=== PATIENT | female | born 1985 | race Two or more races ===

== ENCOUNTER 2024-11-13 11:37 | Observation (INO) | payer MEDICAID, SELFPAY ==
[2024-11-13 11:40] VITALS: BP 138/81; PULSE 73; RESP 17; RESP 98; TEMP 36.7; BMI 35.5
[2024-11-13 11:51] VITALS: BP 138/81; PULSE 73
[2024-11-13] MEDS: BETAMET ACET/BETAMET NA PH (Celestone) 6 MG/ML VIAL 12 MG IM (11:51)
== END 2024-11-13 12:30 | disposition home or self-care (01) ==
PROVIDERS: Admitting Provider Obstetrics & Gynecology; Visit Provider Obstetrics & Gynecology
DX: Z34.83 Encounter for supervision of other normal pregnancy, third trimester (principal); Z3A.31 31 weeks gestation of pregnancy
CPT/HCPCS: 59025; 59899; 96372; J0702

== ENCOUNTER 2024-11-14 15:25 | Outpatient (CLI) | payer MEDICAID, SELFPAY ==
[2024-11-14] VITALS (8 sets, daily range): BP systolic 132–172; BP diastolic 65–91; PULSE 79–100; RESP 18–99; TEMP 36.7; BMI 38.2
[2024-11-14] MEDS: BETAMET ACET/BETAMET NA PH (Celestone) 6 MG/ML VIAL 12 MG IM (15:51)
[2024-11-14 17:06] LABS: Collection Type, Urine Clean Catch; RBC,Urine 0 /hpf (0-3)
[2024-11-14 17:11] LABS: Basophils # (Auto) 0.0 Thou/mm3 (0.0-0.2); Basophils % (Auto) 0 % (0-2.5); Eosinophils # (Auto) 0.1 Thou/mm3 (0.0-0.5); Eosinophils % (Auto) 1 % (0-10); Hematocrit 36.7 % (36.0-46.0); Hemoglobin 11.5 g/dL (12.0-16.0); Immature Granulocytes Auto 0.40 Thou/mm3 (0.00-0.00); Lymphocytes # (Auto) 2.7 Thou/mm3 (1.0-4.8); Lymphocytes % (Auto) 20 % (10-50); Mean Corpuscular HGB Conc 31.3 g/dl (31.0-37.0); Mean Corpuscular Hemoglobin 24.2 pg (25.0-35.0); Mean Corpuscular Volume 77 fL (80-100); Monocytes # (Auto) 1.0 Thou/mm3 (0.0-0.8); Monocytes % (Auto) 8 % (0-12); Neutrophils # (Auto) 9.1 Thou/mm3 (1.8-7.7); Neutrophils % (Auto) 69 % (37-80); Nucleated Red Blood Cell # 0.00 Thou/mm3 (0.00-0.00); Nucleated Red Blood Cell % 0 /100 WBC (0); Platelet Count 233 Thou/mm3 (140-440); RDW Standard Deviation 39.5 fL (36.4-46.3); Red Blood Count 4.75 Miln/mm3 (4.00-5.20); White Blood Count 13.3 Thou/mm3 (3.6-11.0)
[2024-11-14 17:16] LABS: Bacteria,Urine 1+; Bilirubin,Urine Negative (Negative); Blood,Urine Negative (Negative); Clarity,Urine Turbid (Clear/Hazy); Color,Urine Lt-Yellow (Lt Yel-Yel); Glucose, Urine Negative (Negative); Ketones,Urine Negative (Negative); Leukocyte Esterase,Urine Positive (Negative); Nitrite,Urine Negative (Negative); PH,Urine 6.5 (5.0-7.0); Protein,Urine Negative (Neg - Trace); Specific Gravity,Urine 1.009 (1.001-1.035); Squamous Epithelial Cell,Urine 13 /hpf (0-5); Urobilinogen,Urine Negative mg/dL (0.0-1.0); WBC,Urine 5 /hpf (0-5)
[2024-11-14 17:32] LABS: Creatinine,Random Urine 42 mg/dL (30-125); Protein Total, Random Urine 28 mg/dL (1-14)
[2024-11-14 17:36] LABS: Fibrinogen 578 mg/dL (175-375); INR 0.9 (0.9-1.3); Partial Thromboplastin Time 20.9 Seconds (22.0-36.0); Prothrombin Time 9.9 Seconds (9.0-12.2)
[2024-11-14 17:43] LABS: Alanine Aminotransferase 10 U/L (10-49); Albumin, Serum 4.2 gm/dL (3.5-5.0); Albumin/Globulin Ratio 1.4 (1.2-2.2); Alkaline Phosphatase 75 U/L (46-116); Anion Gap 14 (7-16); Aspartate Amino Transferase 19 U/L (0-34); BUN/Creatinine Ratio 10 Ratio (12-20); Bilirubin,Total 0.2 mg/dL (0.3-1.2); Blood Urea Nitrogen 6 mg/dL (9-23); Calcium 9.5 mg/dL (8.3-10.6); Calcium (Corrected) 9.5 mg/dL (8.5-10.1); Carbon Dioxide 19.2 mMol/L (20.0-31.0); Chloride 103 mMol/L (98-107); Creatinine (Component) 0.6 mg/dL (0.6-1.3); Estimated Creatinine Clearance 147.1 mL/min (>60); Globulin 2.9 gm/dL (2.3-3.5); Glucose 97 mg/dL (74-106); Osmolality,Calculated 269 (275-295); Potassium 3.7 mMol/L (3.4-5.1); Sodium 136 mMol/L (136-145); Total Protein 7.1 gm/dL (5.7-8.2); Uric Acid 4.5 mg/dL (3.1-7.8); eGFR > 60 See Note
== END 2024-11-14 17:55 | disposition home or self-care (01) ==
LOC: S4S1 15:26 → S4SX 15:27
PROVIDERS: Referring Provider Obstetrics & Gynecology; Visit Provider Obstetrics & Gynecology
DX: Z34.80 Encounter for supervision of other normal pregnancy, unspecified trimester (principal); Z36.9 Encounter for antenatal screening, unspecified; Z3A.00 Weeks of gestation of pregnancy not specified
CPT/HCPCS: 36415; 59025; 80053; 81001; 82570; 84156; 84550; 85025; 85384; 85610; 85730; 96372; J0702

== ENCOUNTER 2024-11-27 09:39 | Outpatient (CLI) | payer MEDICAID, SELFPAY ==
[2024-11-27 09:40] VITALS: BP 136/88; PULSE 85; RESP 100; RESP 16; TEMP 36.6; BMI 35.6
[2024-11-27 09:45] VITALS: BP 136/88; PULSE 76; PULSE 85; O2SAT 98
[2024-11-27 09:50] VITALS: PULSE 89; O2SAT 99
[2024-11-27 09:55] VITALS: PULSE 81; O2SAT 99
[2024-11-27 10:00] VITALS: PULSE 72; O2SAT 100
== END 2024-11-27 10:14 | disposition home or self-care (01) ==
LOC: S4S1 09:40 → S4SX 09:40
PROVIDERS: Referring Provider Obstetrics & Gynecology; Visit Provider Obstetrics & Gynecology
DX: Z34.83 Encounter for supervision of other normal pregnancy, third trimester (principal); Z36.89 Encounter for other specified antenatal screening; Z3A.33 33 weeks gestation of pregnancy
CPT/HCPCS: 59025

== ENCOUNTER 2024-12-11 09:35 | Outpatient (CLI) | payer MEDICAID, SELFPAY ==
[2024-12-11] VITALS (17 sets, daily range): BP systolic 130–192; BP diastolic 59–104; PULSE 70–81; RESP 18–98; TEMP 36.4; BMI 36.6
--- NOTE | 2024-12-11 09:44 | XR_ITS ---
Examination: Biophysical profile, ultrasound Date and time of exam: December 11, 2024, 1155 hours INDICATIONS: Nonreactive NST on examination today Technique: Multiple transabdominal sonographic images of the pelvis abdomen obtained. Attention is directed to the breathing movement, gross body movement, amniotic fluid volume and tone. Findings: 15.8 amniotic fluid index Total biophysical profile is 8 of 8. breathing movement is 2. Gross body movement is 2. tone is 2. Qualitative amniotic fluid volume is 2 Impression: Biophysical profile is 8 of 8.
--- NOTE | 2024-12-11 10:20 | PD.LDANTE ---
Documentation for date of: 12/11/24 OB Labor/Induct. HPI History of Present Illness : 7 Term pregnancies: 3 pregnancies: 0 Living children: 3 History of Abortions: Spontaneous and Elective: 3 History of sections: No History of : No History of present illness: H and P dictated on STAT line #9 in [facility]. # [id number] Past Medical History Surgical History SURGICAL: Negative Section Meds Home Medications and Allergies Home Medications ?Medication ?Instructions ?Recorded ?Confirmed ?Type propylthiouracil 50 mg tablet 50 mg PO TID 11/18/23 12/11/24 History Held on 12/11/24. Instructions: Doctor's Order vits no.130-ferrous fum 1 tab PO QDAY 11/13/24 12/11/24 History 27 mg iron-folic acid 800 mcg tablet ( Vitamin) aspirin 81 mg tablet,delayed 81 mg PO QDAY 12/11/24 12/11/24 History release ferrous sulfate 325 mg (65 mg 325 mg PO QDAY 12/11/24 12/11/24 History iron) tablet methimazole 5 mg tablet 5 mg PO QDAY 12/11/24 12/11/24 History Allergies Allergy/AdvReac Type Severity Reaction Status Date / Time No Known Allergies Allergy Verified 11/27/24 10:57 OB Exam Physical Exam Vital signs: Pulse BP 76 166/97 H 12/11/24 10:06 12/11/24 10:06
[2024-12-11] MEDS: LABETALOL INJ 5 MG/ML VIAL 20 ML 20 MG IVP (10:31)
[2024-12-11] MEDS: RINGERS LACTATED 1000 ML 1,000 ML 30 ML IV (10:35)
[2024-12-11] MEDS: BETAMET ACET/BETAMET NA PH (Celestone) 6 MG/ML VIAL 12 MG IM (10:38)
--- NOTE | 2024-12-11 10:48 | ESHP_ITS ---
RE: ANITRA CHERY : 1985 DATE OF ADMISSION: 12/11/2024 HISTORY OF PRESENT ILLNESS: This is a 39-year-old 7, para 3-0-3-3 with due date of 01/12 with intrauterine of 38 weeks and 4 days who is due on 01/12, presents to maternal infant unit due to having a spontaneous deceleration during her office non-stress test. The patient presented to maternal unit and was noted to have a blood pressure of 192/104. Subsequent blood pressures were in the 160s/90s. She denies any headache, change in vision or right upper quadrant pain. She denies any chest pain, palpitations, shortness of breath, or lower extremity pain. She does have chronic hypertension, but she does not take any medication. She does have hyperthyroidism and she has been on methimazole throughout her with normal thyroid function tests. She was diagnosed with preeclampsia in November when she was noted to have a 24-hour urine protein of 339 mg, which was a significant change from her baseline 24- hour urine, which was 149 mg back in August. The patient is a gestational diabetic and she is diet controlled. She has been on aspirin throughout her . She did receive betamethasone in November. She underwent a maternal medicine ultrasound on 11/18/2024 showing overall growth at the 99th percentile with normal renal pelvis. She has had serial PIH labs. Her most recent blood work on 12/08/2024 showed all liver function tests, creatinine, platelets all within normal range. MEDICATIONS: 1. multivitamin 1 p.o. daily. 2. Aspirin 81 mg 1 p.o. daily. 3. Methimazole 5 mg 1 p.o. daily. 4. Ferrous sulfate 325 mg 1 p.o. daily. SOCIAL HISTORY: She denies any alcohol, drug use, or smoking. PAST MEDICAL HISTORY: Chronic hypertension with superimposed preeclampsia, hyperthyroidism, gestational diabetes mellitus class A2, endometriosis and advanced maternal age and iron deficiency anemia. FAMILY HISTORY: Hypertension, asthma, hypothyroidism. OBSTETRIC HISTORY: 2006, 37-week normal vaginal delivery, complicated by oligohydramnios; 2008, 37-week normal vaginal delivery, complicated by oligohydramnios; 2016, 39-week normal vaginal REVIEW OF SYSTEMS: She denies any chest pain, palpitations, cough, fever, shortness of breath, or lower extremity pain. She denies any headache, change in vision, right upper quadrant pain. She denies any swelling in her face or hands. PHYSICAL EXAMINATION: VITAL SIGNS: Blood pressure 162/78, heart rate 88, respirations 18, temperature 98.6, weight 234 pounds. HEENT: Oropharynx and sclerae are clear. LUNGS: Clear to auscultation bilaterally. HEART: Regular rate and rhythm. ABDOMEN: Gravid consistent with 35 weeks' gestation. EXTREMITIES: Nontender. SKIN: No gross rashes or lesions. NEUROLOGIC: No focal deficits. ASSESSMENT AND PLAN: Intrauterine at 35 weeks and 3 days, chronic hypertension with superimposed preeclampsia, hyperthyroidism, gestational diabetes mellitus class A1. PLAN: Biophysical profile, non-stress test, betamethasone for lung maturity, second series dosing, PIH labs, labetalol 20 mg IV. I discussed with the patient the nature of her condition, the recommended treatment plan. DT: 10:19:18 TT: 10:46:00 Ref: [id number] - TID: [id number] MTDD
[2024-12-11 10:58] LABS: Collection Type, Urine Clean Catch
[2024-12-11 11:03] LABS: Basophils # (Auto) 0.0 Thou/mm3 (0.0-0.2); Basophils % (Auto) 0 % (0-2.5); Eosinophils # (Auto) 0.1 Thou/mm3 (0.0-0.5); Eosinophils % (Auto) 1 % (0-10); Hematocrit 35.2 % (36.0-46.0); Hemoglobin 11.3 g/dL (12.0-16.0); Immature Granulocytes Auto 0.11 Thou/mm3 (0.00-0.00); Lymphocytes # (Auto) 2.1 Thou/mm3 (1.0-4.8); Lymphocytes % (Auto) 23 % (10-50); Mean Corpuscular HGB Conc 32.1 g/dl (31.0-37.0); Mean Corpuscular Hemoglobin 24.0 pg (25.0-35.0); Mean Corpuscular Volume 75 fL (80-100); Monocytes # (Auto) 0.5 Thou/mm3 (0.0-0.8); Monocytes % (Auto) 5 % (0-12); Neutrophils # (Auto) 6.6 Thou/mm3 (1.8-7.7); Neutrophils % (Auto) 70 % (37-80); Nucleated Red Blood Cell # 0.00 Thou/mm3 (0.00-0.00); Nucleated Red Blood Cell % 0 /100 WBC (0); Platelet Count 297 Thou/mm3 (140-440); RDW Standard Deviation 38.8 fL (36.4-46.3); Red Blood Count 4.71 Miln/mm3 (4.00-5.20); White Blood Count 9.4 Thou/mm3 (3.6-11.0)
[2024-12-11 11:06] LABS: Bilirubin,Urine Negative (Negative); Blood,Urine Negative (Negative); Clarity,Urine Clear (Clear/Hazy); Color,Urine Colorless (Lt Yel-Yel); Glucose, Urine Negative (Negative); Ketones,Urine Trace (Negative); Leukocyte Esterase,Urine Negative (Negative); Nitrite,Urine Negative (Negative); PH,Urine 6.5 (5.0-7.0); Protein,Urine Negative (Neg - Trace); RBC,Urine < 1 /hpf (0-3); Specific Gravity,Urine 1.002 (1.001-1.035); Squamous Epithelial Cell,Urine < 1 /hpf (0-5); Urobilinogen,Urine Negative mg/dL (0.0-1.0); WBC,Urine < 1 /hpf (0-5)
--- NOTE | 2024-12-11 11:38 | PC.NURSE ---
0915- us called spoke with Azul about need for stat bpp. per us tech, 4 er us are needed to be done before, made aware pt is here for non reactive nst in office. per tech will be up as soon as possible 1039- us called again, spoke with Leann inquiring about BPP ordered for pt, per tech still have US to be done before. Tech asked if pt could walk down but pt has IV and continuous monitoring, per Leann will be up as soon as possible.
[2024-12-11 12:03] LABS: INR 0.9 (0.9-1.3); Partial Thromboplastin Time 26.1 Seconds (22.0-36.0); Prothrombin Time 9.8 Seconds (9.0-12.2)
[2024-12-11 12:08] LABS: Alanine Aminotransferase 8 U/L (10-49); Albumin, Serum 3.9 gm/dL (3.5-5.0); Albumin/Globulin Ratio 1.3 (1.2-2.2); Alkaline Phosphatase 96 U/L (46-116); Anion Gap 13 (7-16); Aspartate Amino Transferase 16 U/L (0-34); BUN/Creatinine Ratio 13 Ratio (12-20); Bilirubin,Total 0.3 mg/dL (0.3-1.2); Blood Urea Nitrogen < 5 mg/dL (9-23); Calcium 9.3 mg/dL (8.3-10.6); Calcium (Corrected) 9.4 mg/dL (8.5-10.1); Carbon Dioxide 20.8 mMol/L (20.0-31.0); Chloride 106 mMol/L (98-107); Creatinine (Component) 0.4 mg/dL (0.6-1.3); Estimated Creatinine Clearance 239.1 mL/min (>60); Globulin 2.9 gm/dL (2.3-3.5); Glucose 81 mg/dL (74-106); LDH (Lactate Dehydrogenase) 187 U/L (120-246); Osmolality,Calculated 275 (275-295); Potassium 3.5 mMol/L (3.4-5.1); Sodium 140 mMol/L (136-145); Total Protein 6.8 gm/dL (5.7-8.2); eGFR > 60 See Note
[2024-12-11 12:18] LABS: Uric Acid 5.0 mg/dL (3.1-7.8)
[2024-12-11 12:28] LABS: Fibrinogen 708 mg/dL (175-375)
[2024-12-11 13:12] LABS: Creatinine,Random Urine < 13 mg/dL (30-125); Protein Total, Random Urine < 6 mg/dL (1-14)
== END 2024-12-11 12:40 | disposition home or self-care (01) ==
LOC: S4S1 09:36 → S4SX 09:36
PROVIDERS: Referring Provider Specialist; Visit Provider Specialist
DX: O11.3 Pre-existing hypertension with pre-eclampsia, third trimester (principal); O10.913 Unspecified pre-existing hypertension complicating pregnancy, third trimester; O99.283 Endocrine, nutritional and metabolic diseases complicating pregnancy, third trimester; E05.90 Thyrotoxicosis, unspecified without thyrotoxic crisis or storm; O24.410 Gestational diabetes mellitus in pregnancy, diet controlled; O09.523 Supervision of elderly multigravida, third trimester; Z3A.35 35 weeks gestation of pregnancy
CPT/HCPCS: 36415; 59025; 76819; 80053; 81001; 82570; 83615; 84156; 84550; 85025; 85384; 85610; 85730; 87340; 96372; J0702; J3490; J7120; J1920

== ENCOUNTER 2024-12-12 10:40 | Outpatient (CLI) | payer MEDICAID, SELFPAY ==
[2024-12-12] VITALS (12 sets, daily range): BP systolic 144–165; BP diastolic 74–85; PULSE 78–87; RESP 20–99; TEMP 37.2; O2SAT 98–99; BMI 36.8
[2024-12-12] MEDS: BETAMET ACET/BETAMET NA PH (Celestone) 6 MG/ML VIAL 12 MG IM (11:23)
== END 2024-12-12 11:45 | disposition home or self-care (01) ==
LOC: S4SX 10:59 → S4S1 10:59
PROVIDERS: Referring Provider Specialist; Visit Provider Specialist
DX: Z34.83 Encounter for supervision of other normal pregnancy, third trimester (principal); Z3A.35 35 weeks gestation of pregnancy
CPT/HCPCS: 59025; 96372; J0702

== ENCOUNTER 2024-12-18 09:59 | Inpatient (IN) | payer MEDICAID, SELFPAY ==
[2024-12-18] VITALS (28 sets, daily range): BP systolic 0–178; BP diastolic 0–96; PULSE 55–76; RESP 16–20; TEMP 36.6–36.9; O2SAT 95–99; BMI 37.0
[2024-12-18] MEDS: RINGERS LACTATED 1000 ML 1,000 ML 100 ML IV ×2 (10:35→23:25)
--- NOTE | 2024-12-18 10:47 | PD.LDHP ---
Documentation for date of: 12/18/24 Meds Home Medications and Allergies Home Medications ?Medication ?Instructions ?Recorded ?Confirmed ?Type vits no.130-ferrous fum 1 tab PO QDAY 11/13/24 12/12/24 History 27 mg iron-folic acid 800 mcg tablet ( Vitamin) aspirin 81 mg tablet,delayed 81 mg PO QDAY 12/11/24 12/12/24 History release ferrous sulfate 325 mg (65 mg 325 mg PO QDAY 12/11/24 12/12/24 History iron) tablet methimazole 5 mg tablet 5 mg PO QDAY 12/11/24 12/12/24 History labetalol 200 mg tablet 200 mg PO BID 12/12/24 12/12/24 History Allergies Allergy/AdvReac Type Severity Reaction Status Date / Time No Known Allergies Allergy Verified 12/12/24 10:56 OB Exam Physical Exam Vital signs: Pulse BP 71 157/74 H 12/18/24 10:19 12/18/24 10:19 OB Results Labs 12/18/24 10:30 12/18/24 10:30 Impressions Impression: [address] [id number] History and Physical Report Author: Herbie Palacios DO RE: ANITRA CHERY : 1985 DATE OF ADMISSION: 12/18/2024 HISTORY OF PRESENT ILLNESS: This is a 39-year-old 7, para 3-0-3-3 with due date of 01/12 with intrauterine of 36 weeks and 3 days who is due on 01/12, presents to maternal infant unit after being seen by MFM today in the office where her BP was found to be > 165/85 despite Labetalol 200mg po prior to her visit. The MFM US today showed EFW 4230g. She is GDM A1. She received a second dose series of Betamethasone last week. She denies any headache, change in vision or swelling in face or hands or right upper quadrant pain. She denies any chest pain, palpitations, shortness of breath, or lower extremity pain. She does have chronic hypertension and is taking Labetalol 200mg po BID. She does have hyperthyroidism and she has been on methimazole throughout her with normal thyroid function tests. She was diagnosed with preeclampsia in November when she was noted to have a 24-hour urine protein of 339 mg, which was a significant change from her baseline 24-hour urine, which was 149 mg back in August. The patient is a gestational diabetic and she is diet controlled. She has been on aspirin throughout her . She also received betamethasone in November. She underwent a maternal medicine ultrasound on 11/18/2024 showing overall growth at the 99th percentile with normal renal pelvis. MEDICATIONS: 1. multivitamin 1 p.o. daily. 2. Aspirin 81 mg 1 p.o. daily. 3. Methimazole 5 mg 1 p.o. daily. 4. Ferrous sulfate 325 mg 1 p.o. daily. 5. Labetalol 200mg po BID. SOCIAL HISTORY: She denies any alcohol, drug use, or smoking. PAST MEDICAL HISTORY: Chronic hypertension with superimposed preeclampsia, hyperthyroidism, gestational diabetes mellitus class A2, endometriosis and advanced maternal age and iron deficiency anemia. FAMILY HISTORY: Hypertension, asthma, hypothyroidism. OBSTETRIC HISTORY: 2006, 37-week normal vaginal delivery, complicated by oligohydramnios; 2008, 37-week normal vaginal delivery, complicated by oligohydramnios; 2016, 39-week normal vaginal REVIEW OF SYSTEMS: She denies any chest pain, palpitations, cough, fever, shortness of breath, or lower extremity pain. She denies any headache, change in vision, right upper quadrant pain. She denies any swelling in her face or hands. PHYSICAL EXAMINATION: VITAL SIGNS: Blood pressure 162/78, heart rate 88, respirations 18, temperature 98.6, weight 234 pounds. HEENT: Oropharynx and sclerae are clear. LUNGS: Clear to auscultation bilaterally. HEART: Regular rate and rhythm. ABDOMEN: Gravid consistent with weight 9 lbs. EXTREMITIES: Nontender. SKIN: No gross rashes or lesions. NEUROLOGIC: No focal deficits. ASSESSMENT AND PLAN: Intrauterine at 36 weeks and 3 days, chronic hypertension with superimposed preeclampsia, hyperthyroidism, gestational diabetes mellitus class A1, Macrosomia with EFW 4230g at increased risk for Shoulder Dystocia. PLAN: Delivery. Informed consent obtained. Pt aware of the risks, complications, alternatives and benefits of the proposed procedure and she agrees.
[2024-12-18 11:02] LABS: Basophils # (Auto) 0.0 Thou/mm3 (0.0-0.2); Basophils % (Auto) 0 % (0-2.5); Eosinophils # (Auto) 0.1 Thou/mm3 (0.0-0.5); Eosinophils % (Auto) 1 % (0-10); Hematocrit 32.3 % (36.0-46.0); Hemoglobin 10.6 g/dL (12.0-16.0); Immature Granulocytes Auto 0.19 Thou/mm3 (0.00-0.00); Lymphocytes # (Auto) 1.9 Thou/mm3 (1.0-4.8); Lymphocytes % (Auto) 22 % (10-50); Mean Corpuscular HGB Conc 32.8 g/dl (31.0-37.0); Mean Corpuscular Hemoglobin 24.4 pg (25.0-35.0); Mean Corpuscular Volume 74 fL (80-100); Monocytes # (Auto) 0.6 Thou/mm3 (0.0-0.8); Monocytes % (Auto) 7 % (0-12); Neutrophils # (Auto) 5.8 Thou/mm3 (1.8-7.7); Neutrophils % (Auto) 67 % (37-80); Nucleated Red Blood Cell # 0.00 Thou/mm3 (0.00-0.00); Nucleated Red Blood Cell % 0 /100 WBC (0); Platelet Count 270 Thou/mm3 (140-440); RDW Standard Deviation 39.4 fL (36.4-46.3); Red Blood Count 4.34 Miln/mm3 (4.00-5.20); White Blood Count 8.6 Thou/mm3 (3.6-11.0)
[2024-12-18 11:27] LABS: Alanine Aminotransferase 10 U/L (10-49); Albumin, Serum 3.4 gm/dL (3.5-5.0); Albumin/Globulin Ratio 1.3 (1.2-2.2); Alkaline Phosphatase 87 U/L (46-116); Anion Gap 11 (7-16); Aspartate Amino Transferase 12 U/L (0-34); BUN/Creatinine Ratio 13 Ratio (12-20); Bilirubin,Total 0.3 mg/dL (0.3-1.2); Blood Urea Nitrogen < 5 mg/dL (9-23); Calcium 8.7 mg/dL (8.3-10.6); Calcium (Corrected) 9.2 mg/dL (8.5-10.1); Carbon Dioxide 22.1 mMol/L (20.0-31.0); Chloride 107 mMol/L (98-107); Creatinine (Component) 0.4 mg/dL (0.6-1.3); Globulin 2.6 gm/dL (2.3-3.5); Glucose 92 mg/dL (74-106); Osmolality,Calculated 276 (275-295); Potassium 3.4 mMol/L (3.4-5.1); Sodium 140 mMol/L (136-145); Total Protein 6.0 gm/dL (5.7-8.2); Uric Acid 5.4 mg/dL (3.1-7.8); eGFR > 60 See Note
[2024-12-18] MEDS: METHIMAZOLE 5 MG TABLET PO (11:32)
[2024-12-18 11:33] LABS: Syphilis Nonreactive (Nonreactive)
[2024-12-18 11:54] LABS: INR 0.9 (0.9-1.3); Partial Thromboplastin Time 25.1 Seconds (22.0-36.0); Prothrombin Time 10.1 Seconds (9.0-12.2)
[2024-12-18 11:55] LABS: Fibrinogen 609 mg/dL (175-375)
[2024-12-18 12:10] LABS: Collection Type, Urine Clean Catch
[2024-12-18] MEDS: ONDANSETRON INJ 2 MG/ML INJ 2 ML 4 MG IVP (12:12)
[2024-12-18] MEDS: ceFAZolin/D5W 2 GM IV 2 GM/100 ML BAG IV (12:12)
[2024-12-18] MEDS: FAMOTIDINE INJ 10 MG/ML VIAL 2 ML 20 MG IV (12:12)
--- NOTE | 2024-12-18 12:29 | PD.GYNPROC ---
Operative Note - [employer] Procedure Date of procedure: 12/18/24 Procedure Performed: Primary Low Transverse Section via Pfanensteil Skin Incision ` Indication: Intrauterine at 36 weeks and 3 days Chronic hypertension with superimposed preeclampsia Hyperthyroidism Gestational diabetes mellitus class A1 Advanced Maternal Age Macrosomia with EFW 4230g at increased risk for Shoulder Dystocia in the setting of diabetes. Pre-Op diagnosis: Intrauterine at 36 weeks and 3 days Chronic hypertension with superimposed preeclampsia Hyperthyroidism Gestational diabetes mellitus class A1 Advanced Maternal Age Macrosomia with EFW 4230g at increased risk for Shoulder Dystocia in the setting of diabetes Post-Op diagnosis: Intrauterine at 36 weeks and 3 days Chronic hypertension with superimposed preeclampsia Hyperthyroidism Gestational diabetes mellitus class A1 Advanced Maternal Age Macrosomia with EFW 4230g at increased risk for Shoulder Dystocia in the setting of diabetes Adenomyosis Endometriosis Anesthesia type: Spinal Procedure description: After proper informed consent was obtained and the patient was made aware of the risks, complications, alternatives and benefits of the proposed procedure she was taken to the operating room where she underwent induction of spinal anesthesia. She was prepped and draped in the usual sterile fashion. A timeout was performed.? A Pfannenstiel skin incision was made with the scalpel and carried through to the underlying layer of fascia with the Bovie. The fascia was nicked in the midline incision and the incision was extended bilaterally with the Bovie. The inferior aspect of the fascial incision was grasped with Blake clamps elevated and the underlying rectus muscle dissected off with the Bovie. The superior aspect the fascial incision was grasped with Blake clamps elevated and the underlying rectus muscle dissected off with the Bovie. The rectus muscles were in the midline. The peritoneum was grasped between 2 Ramos clamps and entered sharply with the Metzenbaum scissors. The peritoneum was extended superiorly and inferiorly with good visualization of the bladder. The vesicouterine peritoneum was incised transversely and the bladder flap created digitally. A Drayden blade was inserted. A low transverse incision was made in the uterus with a scapel and the incision was extended digitally. The infant's head delivered and the mouth and nose were suctioned with the bulb suction. The shoulder and body delivered atraumatically. The cord was clamped after 30 second delayed cord clamping and the cord was cut.? The male was handed off to the waiting Pediatric staff, cord blood was collected for lab testing. The placenta was removed complete and intact. The uterus was exteriorized and cleared of all clots and debris. The uterine incision was closed with #1-0 chromic catgut suture in a running interlocking fashion. A second layer of the same suture was used to imbricate the first layer and obtain excellent hemostasis. The vesicouterine peritoneum was closed with 2-0 chromic catgut suture in a running fashion. The firm uterus was returned to the abdomen. The gutters were cleared of all clots and debris. The peritoneum was closed with 0 chromic catgut suture in running fashion. The rectus muscle was closed with 0 chromic catgut suture. The fascia was closed with 0 Vicryl beginning at each angle and ending in the center in a running fashion. The subcutaneous tissue was irrigated with warmed normal saline solution and found to be hemostatic. The subcutaneous tissue was closed with 2-0 chromic catgut suture in a running fashion. The skin was closed with 4-0 Monocryl. A Dermabond Prineo dressing was applied and a sterile pressure dressing was applied.? She tolerated the procedure well. Counts were correct. I discussed with the patient the nature of her condition, intraoperative findings and expectation for recovery all? questions answered. Specimen: none Estimated blood loss (ml): 800 Findings: Live infant male APGARS 8 and 9 Clear amniotic fluid Cephalic Placenta removed complete and intact Uterus with endometriosis implants on posterior utero-sacral ligaments Left ovary normal size with superficial endometriotic implants Right ovary not visualized Fallopian tubes appeared wnl No endometriosis seen in the cul de sac or on the rectosigmoid colon Complications: none Surgical staff Sara Palacios, Surgeon Operation Date: 12/18/24 12:45 <No data on this case meets the specified criteria> Diagnosis Discharge Diagnosis (1) delivery delivered: Status: Acute (2) Pre-eclampsia added to pre-existing hypertension: Status: Acute (3) Macrosomia affecting management of mother: Status: Acute (4) GDM (gestational diabetes mellitus), class A1: Status: Acute (5) Hyperthyroidism affecting : Status: Acute (6) Endometriosis: Status: Acute (7) Adenomyosis of the uterus: Status: Acute Problem List Completed Was Problem List Reviewed/Reconciled?: Yes (3) Macrosomia affecting management of mother Qualifiers: Fetus number: single or unspecified fetus Trimester: third trimester Qualified Code(s): O36.63X0 - Maternal care for excessive growth, third trimester, not applicable or unspecified (5) Hyperthyroidism affecting Qualifiers: Trimester: third trimester Qualified Code(s): O99.283 - Endocrine, nutritional and metabolic diseases complicating , third trimester; E05.90 - Thyrotoxicosis, unspecified without thyrotoxic crisis or storm
[2024-12-18 12:40] LABS: Creatinine,Random Urine 105 mg/dL (30-125); Protein Total, Random Urine 88 mg/dL (1-14)
[2024-12-18 12:42] LABS: Bacteria,Urine Rare; Bilirubin,Urine Negative (Negative); Blood,Urine 2+ (Negative); Clarity,Urine Turbid (Clear/Hazy); Color,Urine Yellow (Lt Yel-Yel); Glucose, Urine Negative (Negative); Ketones,Urine Negative (Negative); Leukocyte Esterase,Urine Positive (Negative); Nitrite,Urine Negative (Negative); PH,Urine 6.0 (5.0-7.0); Protein,Urine 1+ (Neg - Trace); RBC,Urine 1 /hpf (0-3); Specific Gravity,Urine 1.018 (1.001-1.035); Squamous Epithelial Cell,Urine 21 /hpf (0-5); Urobilinogen,Urine Negative mg/dL (0.0-1.0); WBC,Urine 9 /hpf (0-5)
--- NOTE | 2024-12-18 13:34 | PD.LDDS ---
DS: Providers Provider Date of admission: 12/18/24 09:59 Primary care physician: Physician No Primary/Family Admitting Provider: Herbie Palacios MD Attending Provider on Admission: Herbie Palacios MD Consults: 12/18/24 12:56 Referral Routine Comment: Attending Provider on DC: Herbie Palacios MD Discharging Provider: Herbie Palacios MD DS: Diagnosis Discharge Diagnosis (1) delivery delivered: Status: Acute (2) Hyperthyroidism affecting : Status: Acute (3) GDM (gestational diabetes mellitus), class A1: Status: Acute (4) Macrosomia affecting management of mother: Status: Acute (5) Pre-eclampsia added to pre-existing hypertension: Status: Acute (6) Endometriosis: Status: Acute (7) Adenomyosis of the uterus: Status: Acute Problem List Completed Was Problem List Reviewed/Reconciled?: Yes Summary/Hosp Course Peripartum Data Delivery Method: Low Transverse Episiotomy Description: None Procedures: Procedures Operation Date: 12/18/24 12:45 <No data on this case meets the specified criteria> Time Spent with Patient Time attestation: Total time spent providing and/or coordinating discharge services: Exam Vital Signs Pulse BP 71 178/80 H 12/18/24 12:08 12/18/24 12:08 Discharge Plan Plan Patient Disposition: HOME (Self Care) Patient condition on transfer: Stable Prescriptions/Referrals Prescriptions/Med Rec: New hydrocodone-acetaminophen 5-325 mg tablet 1 tab PO Q6H MDD 4 PRN (Reason: pain) Qty: 20 0RF ibuprofen 600 mg tablet 600 mg PO Q6H PRN (Reason: pain) Qty: 30 0RF hydralazine 25 mg tablet 25 mg PO TID Qty: 30 0RF Continued labetalol 200 mg tablet 200 mg PO BID Vitamin 27 mg iron- 800 mcg tablet 1 tab PO QDAY ferrous sulfate 325 mg (65 mg iron) tablet 325 mg PO QDAY Patient Comments: TAKE 1 TABLET BY MOUTH EVERY DAY methimazole 5 mg tablet 5 mg PO QDAY Patient Comments: TAKE 1 TABLET BY MOUTH EVERY DAY Discontinued aspirin 81 mg tablet,delayed release (DR/EC) 81 mg PO QDAY Patient Comments: TAKE 1 TABLET BY MOUTH EVERY DAY Referrals: No Primary/Family,Physician [Primary Care Provider] Patient/Caregiver Discharge Instructions Discharge Activity: activity as tolerated Other Discharge Activity Instructions:: follow up office 1 week. Education Materials: Breast Care After , After a , C Section Dc Print Language: Brazilian Stand Alone Forms: Maylin Award Info., Patient Portal Info Letter Discharge Order Discharge Orders: Discharge (Routine); Ordered 12/20/24 Ordered By: Herbie Palacios Planned Discharge Date 12/20/24 (2) Hyperthyroidism affecting Qualifiers: Trimester: third trimester Qualified Code(s): O99.283 - Endocrine, nutritional and metabolic diseases complicating , third trimester; E05.90 - Thyrotoxicosis, unspecified without thyrotoxic crisis or storm (4) Macrosomia affecting management of mother Qualifiers: Fetus number: single or unspecified fetus Trimester: third trimester Qualified Code(s): O36.63X0 - Maternal care for excessive growth, third trimester, not applicable or unspecified
[2024-12-18] MEDS: HYDROcodone/APAP 5/325 TABLET 1 TAB PO (17:03)
[2024-12-18] MEDS: OXYTOCIN in NS 20 units 20 UNIT/1,000 ML BAG 125 UNIT IV (17:10)
[2024-12-18 17:37] LABS: Basophils # (Auto) 0.0 Thou/mm3 (0.0-0.2); Basophils % (Auto) 0 % (0-2.5); Eosinophils # (Auto) 0.1 Thou/mm3 (0.0-0.5); Eosinophils % (Auto) 1 % (0-10); Hematocrit 31.3 % (36.0-46.0); Hemoglobin 10.1 g/dL (12.0-16.0); Immature Granulocytes Auto 0.17 Thou/mm3 (0.00-0.00); Lymphocytes # (Auto) 2.5 Thou/mm3 (1.0-4.8); Lymphocytes % (Auto) 18 % (10-50); Mean Corpuscular HGB Conc 32.3 g/dl (31.0-37.0); Mean Corpuscular Hemoglobin 24.4 pg (25.0-35.0); Mean Corpuscular Volume 76 fL (80-100); Monocytes # (Auto) 0.7 Thou/mm3 (0.0-0.8); Monocytes % (Auto) 5 % (0-12); Neutrophils # (Auto) 10.3 Thou/mm3 (1.8-7.7); Neutrophils % (Auto) 74 % (37-80); Nucleated Red Blood Cell # 0.00 Thou/mm3 (0.00-0.00); Nucleated Red Blood Cell % 0 /100 WBC (0); Platelet Count 235 Thou/mm3 (140-440); RDW Standard Deviation 40.3 fL (36.4-46.3); Red Blood Count 4.14 Miln/mm3 (4.00-5.20); White Blood Count 13.9 Thou/mm3 (3.6-11.0)
[2024-12-18] MEDS: KETOROLAC INJ 30 MG/ML VIAL IVP (23:24)
[2024-12-19] VITALS (12 sets, daily range): BP systolic 121–178; BP diastolic 71–99; PULSE 68–86; RESP 16–21; TEMP 36.6–37.1; O2SAT 96–97
[2024-12-19] MEDS: LABETALOL 100 MG TABLET 200 MG PO ×3 (00:54→20:43)
[2024-12-19] MEDS: KETOROLAC INJ 30 MG/ML VIAL IVP (05:38)
[2024-12-19] MEDS: ENOXAPARIN SOD INJ 40 MG/0.4 ML SYRINGE SC (08:39)
[2024-12-19] MEDS: METHIMAZOLE 5 MG TABLET PO (08:39)
[2024-12-19] MEDS: DOCUSATE SOD 100 MG CAPSULE PO (08:39)
--- NOTE | 2024-12-19 11:47 | ESPR_ITS ---
RE: ANITRA CHERY : 1985 DATE OF SERVICE: 12/19/2024 S: Postop day #1, the patient denies any problem or complaints. She is voiding and ambulating and tolerating regular diet and passing flatus. She denies any nausea or vomiting. She denies any dizziness or lightheadedness. She denies any chest pain, palpitations, shortness of breath, or lower extremity pain. O: Vital Signs: Blood pressure 121/71, heart rate 75, respirations 18, temperature 98.1. Lungs: Clear to auscultation bilaterally. Heart: Regular rate and rhythm. Abdomen: Dressing dry and intact. Fundus is firm. Extremities: Nontender. LABORATORY DATA: Hemoglobin pre-delivery is 10.6, post delivery is 10.1. ASSESSMENT: Postop day #1 status post delivery. Chronic hypertension with superimposed preeclampsia, controlled with labetalol and hydralazine. Hyperthyroidism, controlled with methimazole. P: Remove dressing. Encourage ambulation. support. Possible discharge home tomorrow. DT: 09:24:10 TT: 11:41:00 Ref: [id number] - TID: [id number]
[2024-12-19] MEDS: IBUPROFEN TAB 400 MG TABLET 800 MG PO ×2 (12:10→22:51)
--- NOTE | 2024-12-19 15:27 | OBDSUM_ITS ---
Data (Barros) Data Hx Section: No : 7 Term: 3 : 0 Livin Abortions: Spontaneous & Theraputic: 3 Delivery Data (Barros) Labor Data Induction/Augmentation Agent: None ROM date: 12/18/24 ROM time: 12:48 Amniotic membrane rupture type: Artificial Amniotic fluid description: Clear Delivery Data EDC: 01/12/25 EDC calculated by:: LMP/early US confirmation delivery date: 12/18/24 delivery time: 12:49 Gestational age (weeks): 36 Gestational age (days): 3 Placenta delivery date: 12/18/24 Placenta delivery time: 12:49 Delivered by: Herbie Palacios Delivery nurse: Teodora Guevara RN [place] nurse: Zoe Darling RN Official Court Interpreter at delivery: Yes (Dr. Sahni) Other staff at delivery: fob Delivery Method Delivery method: Low Transverse Presentation: Vertex position: OP Anesthesia Type Anesthesia Type: Spinal Anesthesia type: Spinal Placenta Placenta delivery description: Manual Removal Cord blood sent to lab: Yes cord blood collection: Cord Blood Type Episiotomy Episiotomy description: None EBL Estimated blood loss (ml): 800 Umbilical Cord cord description: 3 Vessels Complications Complications: None Data (Barros) Data order: 1 Mcconnell's gender: Male Identification band number: [id number] weight (gms): 8 lb 15.212 oz Weight (pounds): 8 lbs and 15.2 ozs length: 21.06 in 1 minute: 8 5 minutes: 9
[2024-12-19] MEDS: HYDROcodone/APAP 5/325 TABLET 1 TAB PO (17:00)
[2024-12-20 03:47] VITALS: BP 149/85; PULSE 76; RESP 22; TEMP 36.5; O2SAT 98
[2024-12-20 07:11] VITALS: BP 159/85; PULSE 73
[2024-12-20] MEDS: IBUPROFEN TAB 400 MG TABLET 800 MG PO (07:11)
--- NOTE | 2024-12-20 07:11 | ESPR_ITS ---
RE: ANITRA CHERY : 1985 DATE OF SERVICE: 12/20/2024 Postop day number 2. The patient denies any problem or complaint. She is voiding. She is ambulating. She is tolerating regular diet. She is passing flatus. She denies any headache, change in vision or right upper quadrant pain. She denies any chest pain, palpitations, shortness of breath or lower extremity pain. OBJECTIVE: Vital Signs: Blood pressure 149/85, heart rate is 76, respirations 22, temperature is 97.7, pulse oximetry is 98% on room air. Lungs: Clear to auscultation bilaterally. Heart: Regular rate and rhythm. Abdomen: Incision clear and intact. Fundus is firm. Extremities: Nontender. ASSESSMENT: Postoperative day number 2, status post delivery. Chronic hypertension with superimposed preeclampsia, controlled with labetalol and hydralazine. Hyperthyroidism, controlled with methimazole. PLAN: Discharge home with labetalol, hydralazine and methimazole. Follow up in the office in 1 week. Continue to check blood pressures at home. Discharge instructions given. DT: 07:03:43 TT: 07:09:00 Ref: [id number] - TID: [id number]
[2024-12-20 07:22] VITALS: BP 158/85; PULSE 78; RESP 18; TEMP 36.7; O2SAT 98
[2024-12-20] MEDS: ENOXAPARIN SOD INJ 40 MG/0.4 ML SYRINGE SC (08:40)
[2024-12-20 08:41] VITALS: BP 148/83; PULSE 80
[2024-12-20] MEDS: LABETALOL 100 MG TABLET 200 MG PO (08:41)
[2024-12-20] MEDS: DOCUSATE SOD 100 MG CAPSULE PO (08:41)
[2024-12-20] MEDS: METHIMAZOLE 5 MG TABLET PO (08:41)
--- NOTE | 2024-12-20 09:41 | PC.NURSE ---
Cleared by Billie from social work nurse.
== END 2024-12-20 11:09 | disposition home or self-care (01) | DRG 540 ==
LOC: S4SX 12:24 → S4NX 12:40
PROVIDERS: Admitting Provider Specialist; Visit Provider Specialist
PROC: 10D00Z1 Extraction of Products of Conception, Low, Open Approach (ICD-10-PCS; CPT 59514; principal; 2024-12-18 12:30)
DX: O11.4 Pre-existing hypertension with pre-eclampsia, complicating childbirth (principal); O24.420 Gestational diabetes mellitus in childbirth, diet controlled; O99.284 Endocrine, nutritional and metabolic diseases complicating childbirth; E05.90 Thyrotoxicosis, unspecified without thyrotoxic crisis or storm; O36.63X0 Maternal care for excessive fetal growth, third trimester, not applicable or unspecified; O34.593 Maternal care for other abnormalities of gravid uterus, third trimester; N80.03 Adenomyosis of the uterus; Z3A.36 36 weeks gestation of pregnancy; Z37.0 Single live birth; Z79.899 Other long term (current) drug therapy; Z79.890 Hormone replacement therapy
CPT/HCPCS: 36415; 80053; 81001; 82570; 84156; 84550; 85025; 85384; 85610; 85730; 86780; 86850; 86900; 86901; 86923; A4217; A4314; A4649; J0689; J1650; J1885; J2274; J2371; J2405; J2590; J3010; J3490; J7120; A9270; J2270

== ENCOUNTER 2024-12-23 07:52 | Emergency (ER) | payer MEDICAID, SELFPAY ==
[2024-12-23] VITALS (8 sets, daily range): BP systolic 166–188; BP diastolic 89–109; PULSE 80–94; RESP 17–18; TEMP 36.3–37.2; O2SAT 96–97; BMI 35.4
--- NOTE | 2024-12-23 08:06 | EKG_ITS ---
[facility] Test Date: 2024-12-23 Pat Name: ANITRA CHERY Department: Room: - Gender: Female Childcare Provider: : 1985 Requested By: Huan Herrmann (BRYNN) Order Number: [id number] Reading MD: Huan Herrmann (BRYNN) Measurements Intervals Mora Rate: 80 P: 47 MS: 154 QRS: 21 QRSD: 91 T: 21 QT: 384 QTc: 444 Interpretive Statements SINUS RHYTHM No previous ECG available for comparison /store/S0/[id number]/ecg/[id number].pdf
--- NOTE | 2024-12-23 08:06 | XR_ITS ---
Examination: AP chest single view Technique one AP portable semiupright chest single view Date and time: December 23, 2024 0822 hours INDICATIONS: Chest pain and hypertension 5 days. FINDINGS: Mild heart failure Mild enlargement cardiac contour Prominent vascular congestion with early edema at the lung bases IMPRESSION: Mild heart failure
--- NOTE | 2024-12-23 08:06 | PD.EDRME ---
Rapid Medical Screening Exam RME Arrival date/time: 12/23/24 07:52 39-year-old female presents to the Emergency Department for complaints of feeling off patient reports that she is 3 days patient reports that she had to be induced secondary to hypertension At this time patient is noted to be hypertensive Chief Complaint: General Adult/Misc Complain Vital signs: Vital Signs Temperature 98.1 F 12/23/24 08:04 Pulse Rate 94 12/23/24 08:04 Respiratory Rate 18 12/23/24 08:04 Blood Pressure 170/104 H 12/23/24 08:04 Pulse Oximetry (%) 97 12/23/24 08:04 Oxygen Delivery Method Room Air 12/23/24 08:04
[2024-12-23] MEDS: LABETALOL INJ 5 MG/ML VIAL 20 ML 20 MG IVP ×2 (08:31→12:17)
--- NOTE | 2024-12-23 08:40 | PC.NURSE ---
Pt. here from home to room 1, pt. states she was pumping this morning and felt her heart pounding pt. states she knew something was off. Pt. states she had a emergency on Saturday because her baby boy was big and her blood pressure was high. Pt. states at this time she feels good, no ARGUETA, no dizziness, pt. just requests ice water. Pt. states incision is no longer hurting, pt. states she is a . Ice water given, pt. tolerated well.
--- NOTE | 2024-12-23 08:47 | PD.EDADULT ---
ED General RME/HPI General Chief complaint: General Adult/Misc Complain Stated complaint: HTN Time Seen by Provider: 12/23/24 08:27 Arrival date/time: 12/23/24 07:52 RME / HPI RME / HPI narrative: 12/23/24 07:52 39-year-old female presents to the Emergency Department for complaints of feeling off patient reports that she is 3 days patient reports that she had to be induced secondary to hypertension At this time patient is noted to be hypertensive DR. ESCOBEDO MAIN ED EVALUATION 39 yo female patient who is s/p @ 36w3d on 12/18/2024 (induced secondary to elevated blood pressure), preeclampsia, chronic hypertension, presents to the ED for evaluation of elevated blood pressure today. States she is currently on Labetalol and Hydralazine which she is compliant with and took this morning. Denies fevers, chills, chest pain, cough, shortness of breath, headache. Related Data Home Medications ?Medication ?Instructions ?Recorded ?Confirmed vits no.130-ferrous fum 1 tab PO QDAY 11/13/24 12/18/24 27 mg iron-folic acid 800 mcg tablet ( Vitamin) ferrous sulfate 325 mg (65 mg 325 mg PO QDAY 12/11/24 12/12/24 iron) tablet methimazole 5 mg tablet 5 mg PO QDAY 12/11/24 12/18/24 labetalol 200 mg tablet 200 mg PO BID 12/12/24 12/18/24 Previous Rx's ?Medication ?Instructions ?Recorded hydrocodone 5 mg-acetaminophen 325 1 tab PO Q6H PRN pain #20 tabs 12/18/24 mg tablet ibuprofen 600 mg tablet 600 mg PO Q6H PRN pain #30 tabs 12/18/24 hydralazine 25 mg tablet 25 mg PO TID #30 tabs 12/20/24 hydralazine 50 mg tablet 50 mg PO TID #90 tabs 12/23/24 Allergies Allergy/AdvReac Type Severity Reaction Status Date / Time No Known Allergies Allergy Verified 12/18/24 17:11 Review of Systems Review of Systems Systems Reviewed: All systems reviewed, normal except as documented Past Medical History Past Medical History CARDIAC: Positive Cardiac Disorders and Hypertension (HTN mother of pt, self HTN during ) GASTROINTESTINAL: Positive Gastrointestinal Disorders and Obesity REPRODUCTIVE: Positive Previous Pregnancies () ENDOCRINE: Positive Endocrine Disorders and Hyperthyroidism (self) Family History FAMILY HISTORY: Positive Family Cardiac Disorders Social History SMOKING STATUS: Never smoker SECOND HAND EXPOSURE: No ED Exam Narrative Physical exam: GENERAL APPEARANCE: alert and oriented x 4, well-developed, well-nourished, no acute distress HEENT: Normocephalic, atraumatic; pupils equal, round, reactive to light; EOMI; mucous membranes pink, moist; oropharynx clear NECK: Supple LUNGS: CTABL; no wheezes, no rales, no rhonchi HEART: Regular rate, regular rhythm; normal S1, S2; no murmurs ABDOMEN: non distended; normal BS; soft, no tenderness, no guarding, no rebound; no masses, no organomegaly, no hernia BACK: no CVA tenderness EXTREMITIES: atraumatic; no edema NEUROLOGIC: awake; alert and oriented x4; cranial nerves II-XII grossly intact; no focal sensory or motor deficits PSYCHIATRIC: appropriate mood and affect SKIN: warm, dry, normal color; no rashes Course Course Course Narrative: 0825: Blood pressure 188/109. Ordered 20mg IV Labetalol. 1210: Blood pressure 174/93. Ordered 20mg IV Labetalol. 1328: Blood pressure 179/97. Ordered 10mg IV Hydralazine. Quality Measures none Orders Category Date Time Status EKG (ED ONLY) *Do not use* NOW Care 12/23/24 08:06 Completed EKG (ED Only) Stat Exams 12/23/24 08:06 Draft XR chest 1V portable Stat Exams 12/23/24 08:06 Completed B-Type Natriuretic Peptide Stat Lab 12/23/24 08:23 Completed CBC Stat Lab 12/23/24 08:23 Completed Comprehensive Metabolic Panel Stat Lab 12/23/24 08:23 Completed Free T4 (Free Thyroxine) Stat Lab 12/23/24 08:23 Completed Magnesium Stat Lab 12/23/24 08:23 Completed Partial Thromboplastin Time Stat Lab 12/23/24 08:23 Completed Prothrombin Time with INR Stat Lab 12/23/24 08:23 Completed TSH [Thyroid Stimulating Hormone] Stat Lab 12/23/24 08:23 Completed Troponin I Stat Lab 12/23/24 08:23 Completed Urinalysis, C/S if Indicated Stat Lab 12/23/24 09:15 Completed HYDROcodone*/APAP 5/325 [[place] 5/325] Med 12/23/24 13:27 Discontinued 1 tab PO X1 ONE KCL 10% Liq UDC 15 ML Med 12/23/24 09:16 Discontinued 40 meq PO X1 ONE Labetalol IV [Trandate IV] Med 12/23/24 08:26 Discontinued 20 mg IVP X1 ONE Labetalol IV [Trandate IV] Med 12/23/24 12:09 Discontinued 20 mg IVP X1 ONE Magnesium Sulfate 2 GM Ivpb [Magnesium Sulfate Ivpb] Med 12/23/24 09:16 Discontinued 2 gm in 50 ml IV X1 hydrALAZINE INJ [Apresoline Inj] Med 12/23/24 13:26 Discontinued 10 mg IVP X1 ONE Vital Signs Vital signs: Vital Signs Temperature 98.1 F 12/23/24 08:04 Pulse Rate 94 12/23/24 08:04 Respiratory Rate 18 12/23/24 08:04 Blood Pressure 170/104 H 12/23/24 08:04 Pulse Oximetry (%) 97 12/23/24 08:04 Oxygen Delivery Method Room Air 12/23/24 08:04 Pulse ox is 97% on room air which is adequate. Discharge Plan Plan Patient Disposition: HOME (Self Care) Prescriptions/Referrals Prescriptions/Med Rec: New hydralazine 50 mg tablet 50 mg PO TID Qty: 90 0RF No Action hydrocodone-acetaminophen 5-325 mg tablet 1 tab PO Q6H MDD 4 PRN (Reason: pain) Qty: 20 0RF ibuprofen 600 mg tablet 600 mg PO Q6H PRN (Reason: pain) Qty: 30 0RF hydralazine 25 mg tablet 25 mg PO TID Qty: 30 0RF labetalol 200 mg tablet 200 mg PO BID Vitamin 27 mg iron- 800 mcg tablet 1 tab PO QDAY ferrous sulfate 325 mg (65 mg iron) tablet 325 mg PO QDAY Patient Comments: TAKE 1 TABLET BY MOUTH EVERY DAY methimazole 5 mg tablet 5 mg PO QDAY Patient Comments: TAKE 1 TABLET BY MOUTH EVERY DAY Referrals: Diaz Victor MD [Primary Care Provider, Family Practice] - In 1 week Herbie Palacios MD [Physician, [facility]] Problem List Clinical Impression: Hypertension in , condition, Hypertensive urgency Patient/Caregiver Discharge Instructions Education Materials: ED High Blood Pressure ... Additional Instructions: Increase hydralazine to 50 mg threee times daily. Report blood pressure readings to Dr. Palacios's office tomorrow, or if you have additional concerns you may go to Dr. Palacios's office as a walk-in patient. Print Language: Tajik Stand Alone Forms: Maylin Award Info., Patient Portal Info Letter MDM Narrative [facility] hospital course: IInga am scribing for and in the presence of Dr. Escobedo. Clinical Information Provided by patient Medical Records Reviewed [facility] I reviewed operative report and H&P on 12/18/2024 Meds/Rx Considered, not Ordered None Labs/Rad/Tests considered, not Ordered None Chronic Illness/Social Conditions which may negatively complicate care or outcome(s)-explain: None or not applicable EKG EKG Interpretation narrative: EKG @ 08:17 AM. NSR, rate 80, no acute ischemic changes, no STEMI. Lab Interpretation Lab(s) interpretation(s): Troponin within normal range No protein in urine Imaging Radiology reports / interpretation(s): Ordering Physician: Alize (BRYNN),Huan SWAIN Date of Service: 12/23/24 Procedure(s): XR chest 1V portable Accession Number(s): [id number] cc: Alize (BRYNN),Huan SWAIN; Tate Barrera MD~ Examination: AP chest single view Technique one AP portable semiupright chest single view Date and time: December 23, 2024 0822 hours INDICATIONS: Chest pain and hypertension 5 days. FINDINGS: Mild heart failure Mild enlargement cardiac contour Prominent vascular congestion with early edema at the lung bases IMPRESSION: Mild heart failure Dictated By: Tate Barrera MD Signed By: <Electronically signed by Tate Barrera MD in OV> 12/23/24 0902 Medication Administration(s) Medication Administration History Discontinued Medications Hydrocodone Bitart/Acetaminophen (Hydrocodone/Apap 5/325 Tablet) 1 tab PO X1 ONE Stop: 12/23/24 13:28 Last Admin: 12/23/24 13:37 Dose: 1 tab Documented By: ED Hydralazine HCl (Hydralazine Inj 20 Mg/Ml Vial) 10 mg IVP X1 ONE Stop: 12/23/24 13:27 Last Admin: 12/23/24 13:39 Dose: 10 mg Documented By: ED Magnesium Sulfate (Magnesium Sulfate Ivpb) 2 gm in 50 mls @ 25 mls/hr IV X1 ONE Stop: 12/23/24 11:15 Last Infusion: 12/23/24 11:41 Dose: Infused Documented By: Admin: 12/23/24 09:41 Dose: 25 mls/hr Documented By: ED Labetalol HCl (Labetalol Inj 5 Mg/Ml Vial 20 Ml) 20 mg IVP X1 ONE Stop: 12/23/24 08:27 Last Admin: 12/23/24 08:31 Dose: 20 mg Documented By: GM Labetalol HCl (Labetalol Inj 5 Mg/Ml Vial 20 Ml) 20 mg IVP X1 ONE Stop: 12/23/24 12:10 Last Admin: 12/23/24 12:17 Dose: 20 mg Documented By: ED Comments: Dr. Escobedo aware pt.'s BP 168/89. Potassium Chloride (Potassium Chloride 10% 20 Meq/15 Ml Udc) 40 meq PO X1 ONE Stop: 12/23/24 09:17 Last Admin: 12/23/24 09:40 Dose: 40 meq Documented By: ED See above Consultations/Discussions re: Management Consult #1: Date/time: 12/23/24 1:25 pm Physician, specialty, service, details: I spoke with OBGYN Dr. Palacios. Discussed patients PMHx, HPI, ED course, labs, and radiology results. Recommends increasing the Hydralazine to 50mg TID and discharge home. Diagnosis Most likely dx, and/or detailed dx discussion: Hypertension in , condition Hypertensive urgency Dispositon Disposition: Discharge Home
[2024-12-23 08:50] LABS: Basophils # (Auto) 0.0 Thou/mm3 (0.0-0.2); Basophils % (Auto) 0 % (0-2.5); Eosinophils # (Auto) 0.3 Thou/mm3 (0.0-0.5); Eosinophils % (Auto) 3 % (0-10); Hematocrit 28.5 % (36.0-46.0); Hemoglobin 9.0 g/dL (12.0-16.0); Immature Granulocytes Auto 0.21 Thou/mm3 (0.00-0.00); Lymphocytes # (Auto) 2.5 Thou/mm3 (1.0-4.8); Lymphocytes % (Auto) 30 % (10-50); Mean Corpuscular HGB Conc 31.6 g/dl (31.0-37.0); Mean Corpuscular Hemoglobin 24.3 pg (25.0-35.0); Mean Corpuscular Volume 77 fL (80-100); Monocytes # (Auto) 0.6 Thou/mm3 (0.0-0.8); Monocytes % (Auto) 7 % (0-12); Neutrophils # (Auto) 4.8 Thou/mm3 (1.8-7.7); Neutrophils % (Auto) 57 % (37-80); Nucleated Red Blood Cell # 0.00 Thou/mm3 (0.00-0.00); Nucleated Red Blood Cell % 0 /100 WBC (0); Platelet Count 330 Thou/mm3 (140-440); RDW Standard Deviation 40.9 fL (36.4-46.3); Red Blood Count 3.71 Miln/mm3 (4.00-5.20); White Blood Count 8.4 Thou/mm3 (3.6-11.0)
[2024-12-23 09:14] LABS: Alanine Aminotransferase 47 U/L (10-49); Albumin, Serum 4.0 gm/dL (3.5-5.0); Albumin/Globulin Ratio 1.7 (1.2-2.2); Alkaline Phosphatase 79 U/L (46-116); Anion Gap 12 (7-16); Aspartate Amino Transferase 30 U/L (0-34); BUN/Creatinine Ratio 14 Ratio (12-20); Bilirubin,Total 0.2 mg/dL (0.3-1.2); Blood Urea Nitrogen 7 mg/dL (9-23); Calcium 9.5 mg/dL (8.3-10.6); Calcium (Corrected) 9.5 mg/dL (8.5-10.1); Carbon Dioxide 24.4 mMol/L (20.0-31.0); Chloride 104 mMol/L (98-107); Creatinine (Component) 0.5 mg/dL (0.6-1.3); Estimated Creatinine Clearance 187.8 mL/min (>60); Free T4 (Free Thyroxine) 1.26 ng/dL (0.89-1.76); Globulin 2.4 gm/dL (2.3-3.5); Glucose 94 mg/dL (74-106); Magnesium 1.5 mg/dL (1.6-2.6); Osmolality,Calculated 277 (275-295); Potassium 3.5 mMol/L (3.4-5.1); Sodium 140 mMol/L (136-145); Thyroid Stimulating Hormone 4.68 uIU/mL (0.55-4.78); Total Protein 6.4 gm/dL (5.7-8.2); Troponin I < 0.020 ng/mL (0.0-0.045); eGFR > 60 See Note
[2024-12-23 09:25] LABS: B-Type Natriuretic Peptide 166 pg/mL (0-100)
[2024-12-23 09:27] LABS: INR 0.9 (0.9-1.3); Partial Thromboplastin Time 26.2 Seconds (22.0-36.0); Prothrombin Time 9.8 Seconds (9.0-12.2)
[2024-12-23] MEDS: POTASSIUM CHLORIDE 10% 20 MEQ/15 ML UDC 40 MEQ PO (09:40)
[2024-12-23] MEDS: Magnesium Sulfate 2 GM Ivpb 2 GM/50 ML BAG IV (09:41)
[2024-12-23 10:37] LABS: Collection Type, Urine Clean Catch
[2024-12-23 10:52] LABS: Bilirubin,Urine Negative (Negative); Blood,Urine 1+ (Negative); Clarity,Urine Clear (Clear/Hazy); Color,Urine Colorless (Lt Yel-Yel); Culture Indicated,Urine Not Indicated; Glucose, Urine Negative (Negative); Ketones,Urine Negative (Negative); Leukocyte Esterase,Urine Negative (Negative); Nitrite,Urine Negative (Negative); PH,Urine 6.5 (5.0-7.0); Protein,Urine Negative (Neg - Trace); RBC,Urine < 1 /hpf (0-3); Specific Gravity,Urine 1.006 (1.001-1.035); Squamous Epithelial Cell,Urine < 1 /hpf (0-5); Urobilinogen,Urine Negative mg/dL (0.0-1.0); WBC,Urine 1 /hpf (0-5)
--- NOTE | 2024-12-23 11:45 | PC.NURSE ---
Pt. up to RR, pt. ambulating well.
[2024-12-23] MEDS: HYDROcodone/APAP 5/325 TABLET 1 TAB PO (13:37)
[2024-12-23] MEDS: hydrALAZINE INJ 20 MG/ML VIAL 10 MG IVP (13:39)
== END 2024-12-23 14:15 | disposition home or self-care (01) ==
PROVIDERS: Nurse Practitioner Primary Care; Emergency Provider Emergency Medicine; PCP Family Medicine
DX: O10.13 Pre-existing hypertensive heart disease complicating the puerperium (principal); I11.0 Hypertensive heart disease with heart failure; I16.0 Hypertensive urgency; I50.9 Heart failure, unspecified
CPT/HCPCS: 36415; 71045; 80053; 81001; 83735; 83880; 84439; 84443; 84484; 85025; 85610; 85730; 93005; 96365; 96366; 96375; 96376; 99283; J0360; J3475; J3490; A9270; J1920